=== PATIENT | female | born 1995 | race Caucasian/White ===

== ENCOUNTER 2018-09-24 10:13 | Inpatient (IN) | payer BC, OTHER ==
[~2018-09-24] VITALS: Ht 162.6 cm; Wt 66.8 kg
[~2018-09-24 10:13] MED LIST: HYDR-3240 PO; IBUP-1222 PO
[2018-09-24] MEDS ORDERED: LACTATED RINGERS 1,000 ML IVBOLUS ONE (10:30)
[2018-09-24] MEDS ORDERED: METOCLOPRAMIDE 5 MG/ML, 2ML IV ONE (10:30)
[2018-09-24] MEDS ORDERED: SODIUM CITRATE/CITRIC ACID 15 ML UDC PO ONE (10:30)
[2018-09-24] MEDS ORDERED: NEWBORN KIT ONE (10:35)
[2018-09-24] MEDS ORDERED: SODIUM CITRATE/CITRIC ACID 15 ML UDC ONE ×2 (10:35→11:00)
[2018-09-24] MEDS ORDERED: OXYTOCIN 30U/ 0.9% NaCL 500ML 500 ML ONE (10:35)
[2018-09-24] MEDS ORDERED: METOCLOPRAMIDE 5 MG/ML, 2ML ONE (10:35)
[2018-09-24 10:58] LABS: BASOPHILS # (AUTO) 0.11 x10^3/uL (0-0.1); BASOPHILS % (AUTO) 1 % (0-1); EOSINOPHILS # (AUTO) 0.04 x10^3/uL (0-0.4); EOSINOPHILS % (AUTO) 0 % (1-7); LYMPHOCYTES # (AUTO) 2.13 x10^3/uL (1-3.4); LYMPHOCYTES % (AUTO) 22 % (22-44); MD NO; MEAN CORPUSCULAR HEMOGLOBIN 28.9 pg (27.0-34.8); MEAN CORPUSCULAR HGB CONC 33.5 g/dL (32.4-35.8); MEAN CORPUSCULAR VOLUME 86.2 fL (80-100); MEAN PLATELET VOLUME 12.1 fL (7.4-10.4); MONOCYTES # (AUTO) 0.86 x10^3/uL (0.2-0.8); MONOCYTES % (AUTO) 9 % (2-9); NEUTROPHILS # (AUTO) 6.44 x10^3/uL (1.8-6.8); NEUTROPHILS % (AUTO) 67 % (42-75); PLATELET COUNT 164 x10^3/uL (130-400); RED BLOOD COUNT 4.23 x10^6/uL (3.82-5.3); RED CELL DISTRIBUTION WIDTH 12.9 % (9.6-15.2)
[2018-09-24] MEDS ORDERED: PLEASE ENTER HEIGHT AND WEIGHT MC SCH (11:00)
[2018-09-24] MEDS ORDERED: CEFAZOLIN 1,000 MG ONE (11:22)
[2018-09-24] MEDS ORDERED: OXYTOCIN 10 UNITS/ML, 1ML ONE (11:22)
[2018-09-24] MEDS ORDERED: ONDANSETRON 2MG/ML, 2ML ONE (11:22)
[2018-09-24] MEDS ORDERED: FENTANYL PF 100 MCG/2ML ONE (11:23)
[2018-09-24] MEDS ORDERED: SODIUM CHLORIDE 0.9% PF 10ML ONE ×2 (11:23)
[2018-09-24] MEDS ORDERED: HYDROmorphone 2 MG/ML, 1ML ONE (11:23)
[2018-09-24] MEDS: LACTATED RINGERS 1,000 ML IV SCH ×4 (12:09→22:09)
[2018-09-24] MEDS ORDERED: ACETAMINOPHEN 325 MG TABLET PO PRN ×2 (12:30)
[2018-09-24] MEDS ORDERED: CARBOPROST TROMETHAMINE 250 MCG/ML, 1ML IM PRN (12:30)
[2018-09-24] MEDS ORDERED: MISOPROSTOL 200 MCG TABLET PR PRN (12:30)
[2018-09-24] MEDS ORDERED: GLYCERIN ADULT SUPP PR PRN (12:30)
[2018-09-24] MEDS: PRENATAL VIT/IRON/FA 1 EACH TABLET PO SCH (12:30)
[2018-09-24] MEDS ORDERED: MEPERIDINE/PF 50 MG/ML IVPush PRN (12:30)
[2018-09-24] MEDS ORDERED: METOCLOPRAMIDE 5 MG/ML, 2ML IV PRN (12:30)
[2018-09-24] MEDS ORDERED: OXYcodone/APAP 5/325MG TABLET PO PRN (12:30)
[2018-09-24] MEDS ORDERED: ONDANSETRON 2MG/ML, 2ML IV PRN (12:30)
[2018-09-24] MEDS ORDERED: BISACODYL 10 MG SUPP PR PRN (12:30)
[2018-09-24] MEDS ORDERED: METHYLERGONOVINE 0.2 MG/ML IM PRN (12:30)
[2018-09-24] MEDS ORDERED: morphine SULFATE 10 MG/ML, 1ML IM PRN (12:30)
[2018-09-24] MEDS: OXYTOCIN 30U/ 0.9% NaCL 500ML 500 ML IV SCH ×2 (13:25→22:09)
[2018-09-24] MEDS ORDERED: OXYcodone/APAP 5/325MG TABLET ONE (14:12)
[2018-09-24] MEDS: OXYcodone/APAP 5/325MG TABLET PO PRN ×2 (14:14→19:03)
[2018-09-24 15:15] VITALS: BP 112/57
[2018-09-24] MEDS: KETOROLAC 30 MG/1 ML IV SCH ×2 (18:30→19:03)
[2018-09-24 19:15] VITALS: BP 115/72
[2018-09-24 20:36] LABS: BASOPHILS # (AUTO) 0.06 x10^3/uL (0-0.1); BASOPHILS % (AUTO) 0 % (0-1); EOSINOPHILS # (AUTO) 0.02 x10^3/uL (0-0.4); EOSINOPHILS % (AUTO) 0 % (1-7); LYMPHOCYTES # (AUTO) 2.41 x10^3/uL (1-3.4); LYMPHOCYTES % (AUTO) 19 % (22-44); MD NO; MEAN CORPUSCULAR HEMOGLOBIN 28.9 pg (27.0-34.8); MEAN CORPUSCULAR HGB CONC 33.5 g/dL (32.4-35.8); MEAN CORPUSCULAR VOLUME 86.2 fL (80-100); MEAN PLATELET VOLUME 10.8 fL (7.4-10.4); MONOCYTES # (AUTO) 0.75 x10^3/uL (0.2-0.8); MONOCYTES % (AUTO) 6 % (2-9); NEUTROPHILS # (AUTO) 9.64 x10^3/uL (1.8-6.8); NEUTROPHILS % (AUTO) 75 % (42-75); PLATELET COUNT 124 x10^3/uL (130-400); RED BLOOD COUNT 3.53 x10^6/uL (3.82-5.3)
[2018-09-25 00:30] VITALS: BP 104/64
[2018-09-25] MEDS: KETOROLAC 30 MG/1 ML IV SCH ×4 (00:34→17:29)
[2018-09-25] MEDS: OXYcodone/APAP 5/325MG TABLET PO PRN ×3 (00:34→12:53)
[2018-09-25] MEDS: LACTATED RINGERS 1,000 ML IV SCH ×2 (04:09→08:09)
[2018-09-25 04:50] VITALS: BP 100/64
[2018-09-25 07:00] VITALS: BP 96/62
[2018-09-25] MEDS: LEVOTHYROXINE 50 MCG TABLET PO SCH (08:00)
[2018-09-25] MEDS: OXYTOCIN 30U/ 0.9% NaCL 500ML 500 ML IV SCH (08:09)
[2018-09-25 12:10] VITALS: BP 104/67
[2018-09-25] MEDS: PRENATAL VIT/IRON/FA 1 EACH TABLET PO SCH (12:53)
[2018-09-25] MEDS: DOCUSATE 100 MG CAPSULE PO PRN (12:53)
[2018-09-25] MEDS: FERROUS GLUCONATE 324 MG TABLET PO SCH ×2 (12:53→17:28)
[2018-09-25 19:50] VITALS: BP 116/79
[2018-09-25] MEDS: IBUPROFEN 600 MG TABLET PO PRN (22:30)
[2018-09-26] MEDS: LEVOTHYROXINE 50 MCG TABLET PO SCH (05:44)
[2018-09-26] MEDS: IBUPROFEN 600 MG TABLET PO PRN ×2 (05:44→13:08)
[2018-09-26 07:00] VITALS: BP 120/82
[2018-09-26] MEDS: DOCUSATE 100 MG CAPSULE PO PRN (08:58)
[2018-09-26] MEDS: FERROUS GLUCONATE 324 MG TABLET PO SCH ×2 (08:58→13:08)
[2018-09-26] MEDS: PRENATAL VIT/IRON/FA 1 EACH TABLET PO SCH (08:58)
[2018-09-26] MEDS: OXYcodone/APAP 5/325MG TABLET PO PRN (09:01)
[2018-09-26] MEDS ORDERED: FERR325T5 PO (09:20)
[2018-09-26] MEDS ORDERED: IBUP-1222 PO (09:20)
[2018-09-26] MEDS ORDERED: DOCU-131 PO (09:20)
[2018-09-26] MEDS ORDERED: OXYC-302 PO (09:20)
== END 2018-09-26 13:20 | disposition home or self-care (01) | DRG 788 ==
LOC: LDIP 10:13 → 2NW 15:04
PROVIDERS: ADMIT Obstetrics & Gynecology; ATTEND Obstetrics & Gynecology
PROC: 10D00Z1 Extraction of Products of Conception, Low, Open Approach (ICD-10-PCS; principal; 2018-09-24)
DX: O32.1XX0 Maternal care for breech presentation, not applicable or unspecified (principal); E03.9 Hypothyroidism, unspecified; O99.284 Endocrine, nutritional and metabolic diseases complicating childbirth; Z37.0 Single live birth; Z3A.39 39 weeks gestation of pregnancy
CPT/HCPCS: 36415; 76815; 82803; 85025; 86850; 86900; G0378; J0690; J1170; J1885; J2405; J3010; J2590; J2765; J7120